=== PATIENT | female | born 1975 | race Caucasian/White ===

== ENCOUNTER 2020-08-11 14:46 | Observation (INO) ==
[2020-08-11] MEDS ORDERED: SODIUM CHLORIDE 0.9% 1,000 ML IV STA (15:28)
[2020-08-11] MEDS ORDERED: ONDANSETRON 4 MG/2 ML VIAL IV STA (15:28)
[2020-08-11] MEDS ORDERED: MORPHINE 4 MG/1 ML VIAL IV STA (15:28)
[2020-08-11 15:36] LABS: Bilirubin,Urine Negative (Negative); Blood, Urine Small mg/dL (Negative); Glucose,Urine (UA) Negative (Negative); Ketones,Urine Negative (Negative); Mucus,Urine Few /LPF (Occasional); Nitrite,Urine Negative (Negative); Protein,Urine Negative; RBC,Urine 15 /HPF (0-4); Squamous Epithelial Cell,Urine Few /HPF (0-10); Urine Appearance Slightly Hazy (Clear); Urine Color Yellow (Yellow); Urine Specific Gravity 1.017 (1.001-1.035); Urine Urobilinogen < 2.0 EU/DL (0.2-1.0); WBC,Urine 12 /HPF (0-6)
[2020-08-11 15:49] LABS: Barbiturates Screen,Urine Negative (Negative); Benzodiazepines Screen,Urine Negative (Negative); Cannabinoid Screen,Urine Negative (Negative); Opiate Screen,Urine Negative (Negative); Phencyclidine Screen,Urine Negative (Negative)
[2020-08-11] MEDS ORDERED: PIPERACILLIN/TAZOBACTAM 3,375 MG in SODIUM CHLORIDE 0.9% 100 ML IV STA (16:27)
[2020-08-11 16:30] LABS: Basophils # 0.1 10*3/uL (0.0-0.2); Basophils % 0.2 % (0.0-0.8); Eosinophils # 0.1 10*3/uL (0.0-0.87); Eosinophils % 0.4 % (0.00-10.9); Immature Granulocytes % 0.5 %; Immature Granulocytes Absolute 0.12 #; Lymphocytes # 4.1 10*3/uL (1.4-4.0); Lymphocytes % 16.3 % (21.3-54.2); Mean Corpuscular HGB Conc 34.1 GM/DL (32-36); Mean Corpuscular Volume 90.5 FL (87-102); Mean Platelet Volume 9.2 FL (9.6-12.0); Monocytes % 5.1 % (1.7-12.7); Neutrophils % 77.5 % (38.7-73.9); Platelet Count 441 T/CUMM (130-400); Red Blood Count 4.86 MC/CUMM (3.8-5.5); Red Cell Distribution Width 14.3 % (9.3-17.3)
[2020-08-11 16:51] LABS: Albumin 3.7 G/DL (3.4-5.0); Bilirubin,Total 0.4 MG/DL (0.2-1.0); Calcium 9.4 MG/DL (8.5-10.1); Osmolality,Calculated 271.8 MOS/KG (273-304); Total Protein 7.2 G/DL (6.4-8.3)
[2020-08-11 16:52] LABS: Lymphocytes 16 % (20-55); Platelet Estimate Adequate; Segmented Neutrophils 77 % (50-85); Total Cells Counted 100
[2020-08-11] MEDS ORDERED: HYDROmorphone 2 MG/1 ML VIAL IV STA (17:29)
[2020-08-11] MEDS ORDERED: ACETAMINOPHEN 325 MG TABLET PO PRN (17:30)
[2020-08-11] MEDS ORDERED: ONDANSETRON 4 MG/2 ML VIAL IV PRN (17:30)
[2020-08-11] MEDS: HYDROmorphone 2 MG/1 ML VIAL IV PRN (22:46)
[2020-08-11] MEDS: LACTATED RINGERS 1,000 ML IV SCH (22:49)
[2020-08-12] MEDS: PIPERACILLIN/TAZOBACTAM 3,375 MG in SODIUM CHLORIDE 0.9% 100 ML IV SCH ×3 (00:35→17:30)
[2020-08-12] MEDS: HYDROmorphone 2 MG/1 ML VIAL IV PRN (03:11)
[2020-08-12 06:21] LABS: Eosinophils # 0.2 10*3/uL (0.0-0.87); Eosinophils % 0.9 % (0.00-10.9); Immature Granulocytes % 0.6 %; Red Cell Distribution Width 14.2 % (9.3-17.3)
[2020-08-12 06:36] LABS: Basophils % 0.2 % (0.0-0.8); Hematocrit 37.6 VOL% (35.7-47.0); Hemoglobin 12.8 GM/DL (12.0-16.0); Lymphocytes # 4.5 10*3/uL (1.4-4.0); Lymphocytes % 24.8 % (21.3-54.2); Mean Corpuscular Volume 91.9 FL (87-102); Mean Platelet Volume 8.9 FL (9.6-12.0); Monocytes % 8.2 % (1.7-12.7); Neutrophils % 65.3 % (38.7-73.9); Platelet Count 396 T/CUMM (130-400); Red Blood Count 4.09 MC/CUMM (3.8-5.5)
[2020-08-12 06:52] LABS: Eosinophils 2 % (0-10); Lymphocytes 22 % (20-55); Platelet Estimate Normal; Segmented Neutrophils 68 % (50-85); Total Cells Counted 100
[2020-08-12 06:53] LABS: Albumin 2.7 G/DL (3.4-5.0); Bilirubin,Total 0.6 MG/DL (0.2-1.0); Calcium 8.8 MG/DL (8.5-10.1); Osmolality,Calculated 270.8 MOS/KG (273-304); Total Protein 5.9 G/DL (6.4-8.3)
[2020-08-12] MEDS ORDERED: propofoL 200 MG/20 ML VIAL IV ONE (08:46)
[2020-08-12] MEDS ORDERED: ONDANSETRON 4 MG/2 ML VIAL ONE (08:46)
[2020-08-12] MEDS ORDERED: LIDOCAINE 2% 5 ML VIAL ONE (08:46)
[2020-08-12] MEDS ORDERED: MIDAZOLAM 2 MG/2 ML VIAL ONE (08:46)
[2020-08-12] MEDS ORDERED: fentaNYL 100 MCG/2 ML VIAL ONE ×2 (08:46→11:05)
[2020-08-12] MEDS ORDERED: ROCURONIUM 50 MG/5 ML VIAL IV ONE (08:46)
[2020-08-12] MEDS ORDERED: TISSUE ADHESIVE 1 EACH APPLICATOR TOP ONE (08:53)
[2020-08-12] MEDS ORDERED: BUPIVACAINE MPF 0.25% 30 ML VIAL ONE (08:53)
[2020-08-12] MEDS ORDERED: LIDOCAINE 2%/EPI 20 ML VIAL ONE (08:53)
[2020-08-12] MEDS: LACTATED RINGERS 1,000 ML IV SCH ×2 (09:28→17:39)
[2020-08-12] MEDS ORDERED: SUCCINYLCHOLINE 200 MG/10 ML VIAL ONE (10:15)
[2020-08-12] MEDS ORDERED: PHENYLEPHRINE 1 MG/10 ML SYRINGE IV ONE (10:31)
[2020-08-12] MEDS ORDERED: ACETAMINOPHEN 1,000 MG/100 ML VIAL IV ONE (10:31)
[2020-08-12] MEDS ORDERED: LACTATED RINGERS 1,000 ML IV ONE (11:27)
[2020-08-12] MEDS ORDERED: KETOROLAC 30 MG/1 ML VIAL ONE (11:48)
[2020-08-12] MEDS ORDERED: ONDANSETRON 4 MG/2 ML VIAL IV PRN (12:14)
[2020-08-12] MEDS ORDERED: HYDROmorphone 2 MG/1 ML VIAL IV PRN (12:14)
[2020-08-12] MEDS: PANTOPRAZOLE 40 MG TABLET PO SCH (13:36)
[2020-08-13] MEDS: PIPERACILLIN/TAZOBACTAM 3,375 MG in SODIUM CHLORIDE 0.9% 100 ML IV SCH ×2 (00:33→08:40)
[2020-08-13] MEDS: LACTATED RINGERS 1,000 ML IV SCH ×2 (06:53→07:53)
[2020-08-13 07:34] VITALS: BP 123/74
[2020-08-13] MEDS: PANTOPRAZOLE 40 MG TABLET PO SCH (08:40)
== END 2020-08-13 12:58 | disposition home or self-care (01) ==
LOC: N.ED 14:46 → INTOOBSV 17:28 → N.EDINP 17:28 → N.5E 19:56
PROVIDERS: ADMIT Surgery; ATTEND Surgery
PROC: LAPCHOL (2020-08-12 10:10)